=== PATIENT | male | born 1935 | race Caucasian/White ===

== ENCOUNTER → 2017-03-14 | Outpatient (REF) | payer MEDICARE ==
[~2017-03-14] MED LIST: NO HOME MEDS
[2017-03-18 00:06] LABS: Lyme Disease IgG Ab 18 kDa Ban Present (.); Lyme Disease IgG Ab 23 kDa Ban Present (.); Lyme Disease IgG Ab 28 kDa Ban Present (.); Lyme Disease IgG Ab 30 kDa Ban Present (.); Lyme Disease IgG Ab 39 kDa Ban Present (.); Lyme Disease IgG Ab 41 kDa Ban Present (.); Lyme Disease IgG Ab 45 kDa Ban Present (.); Lyme Disease IgG Ab 58 kDa Ban Present (.); Lyme Disease IgG Ab 66 kDa Ban Present (.); Lyme Disease IgG Ab 93 kDa Ban Present (.); Lyme Disease IgG West Blot Int Positive (.); Lyme Disease IgG/IgM Antibodie 3.08 ISR (0.00-0.90); Lyme Disease IgM Ab 23 kDa Ban Present (.); Lyme Disease IgM Ab 39 kDa Ban Present (.); Lyme Disease IgM Ab 41 kDa Ban Absent (.); Lyme Disease IgM Ab Quantitati 2.91 index (0.00-0.79); Lyme Disease IgM West Blot Int Positive (.)
== END ==
LOC: M LAB REF 12:10
PROVIDERS: ATTEND Nurse Practitioner Family
DX: R21 Rash and other nonspecific skin eruption (principal)

== ENCOUNTER → 2017-06-20 | Outpatient (REF) | payer MEDICARE | LOC: M LAB REF 12:42 | PROVIDERS: ATTEND Nurse Practitioner Family | DX: H53.121 Transient visual loss, right eye (principal); R01.1 Cardiac murmur, unspecified; R42 Dizziness and giddiness ==

== ENCOUNTER 2018-01-26 11:36 | Day surgery (SDC) | payer MEDICARE ==
[2018-01-26] MEDS ORDERED: PROPOFOL 200 MG/20 ML VIAL As Ordered (12:40)
== END 2018-01-26 13:46 | disposition home or self-care (01) ==
LOC: M OPP 11:36
DX: Z12.11 Encounter for screening for malignant neoplasm of colon (principal); K64.0 First degree hemorrhoids; D12.6 Benign neoplasm of colon, unspecified; K57.30 Diverticulosis of large intestine without perforation or abscess without bleeding; Z86.010 Personal history of colon polyps; M12.9 Arthropathy, unspecified; A69.22 Other neurologic disorders in Lyme disease; Z91.041 Radiographic dye allergy status; Z85.46 Personal history of malignant neoplasm of prostate; Z92.21 Personal history of antineoplastic chemotherapy
CPT/HCPCS: 45385

== ENCOUNTER → 2019-10-18 | Outpatient (REF) | payer MEDICARE ==
[~2019-10-18] MED LIST changes: +CALC500T61 PO; +FISH7.5C PO; +VITA200015 PO
[2019-10-19 14:15] LABS: PSA TOTAL 0.5 ng/mL (0.0-4.0)
== END ==
LOC: M LAB REF 12:24
PROVIDERS: ATTEND Internal Medicine
DX: C61 Malignant neoplasm of prostate (principal)

== ENCOUNTER → 2020-05-09 | Outpatient (REF) | payer MEDICARE ==
[2020-05-12 15:15] LABS: Lyme Disease IgG Ab 18 kDa Ban Present (.); Lyme Disease IgG Ab 23 kDa Ban Present (.); Lyme Disease IgG Ab 28 kDa Ban Absent (.); Lyme Disease IgG Ab 30 kDa Ban Absent (.); Lyme Disease IgG Ab 39 kDa Ban Present (.); Lyme Disease IgG Ab 41 kDa Ban Present (.); Lyme Disease IgG Ab 45 kDa Ban Absent (.); Lyme Disease IgG Ab 58 kDa Ban Present (.); Lyme Disease IgG Ab 66 kDa Ban Absent (.); Lyme Disease IgG Ab 93 kDa Ban Present (.); Lyme Disease IgG West Blot Int Positive (.); Lyme Disease IgG/IgM Antibodie 1.63 ISR (0.00-0.90); Lyme Disease IgM Ab 23 kDa Ban Present (.); Lyme Disease IgM Ab 39 kDa Ban Absent (.); Lyme Disease IgM Ab 41 kDa Ban Absent (.); Lyme Disease IgM Ab Quantitati <0.80 index (0.00-0.79); Lyme Disease IgM West Blot Int Negative (.)
== END ==
LOC: M LAB REF 16:41
PROVIDERS: ATTEND Nurse Practitioner Adult Health
DX: L30.9 Dermatitis, unspecified (principal)

== ENCOUNTER → 2020-11-09 | Outpatient (CLI) | payer MEDICARE ==
--- NOTE | 2020-11-09 10:37 | REP ---
INDICATION: SHORTNESS OF BREATH COMPARISON: 09/10/2007. TECHNIQUE: PA/Lateral FINDINGS: Lungs: Clear, no infiltrate. Heart: Normal in size. Mediastinum: There is calcification of the thoracic aorta. The mediastinal silhouette is unchanged. Pleural angles: Unremarkable.. Bones and soft tissues: There are degenerative changes of the spine without compression deformity. IMPRESSION: No acute pulmonary disease. <Electronically signed by Harinder Patrick > 11/09/20 1037
== END ==
LOC: M WUC 08:56
PROVIDERS: ATTEND Nurse Practitioner Adult Health
DX: R06.02 Shortness of breath (principal)

== ENCOUNTER → 2022-06-26 | Outpatient (REF) | payer MEDICARE ==
[~2022-06-26] MED LIST changes: +FISH10005 PO; -FISH7.5C PO
[2022-06-28 15:08] LABS: PSA TOTAL 0.8 ng/mL (0.0-4.0); TESTOSTERONE FREE (DIRECT) 1.6 pg/mL (6.6-18.1)
== END ==
LOC: M LAB REF 16:28
PROVIDERS: ATTEND Nurse Practitioner Adult Health
DX: C61 Malignant neoplasm of prostate (principal)

== ENCOUNTER → 2022-10-02 | Outpatient (REF) | payer MEDICARE | LOC: M LAB REF 12:10 | PROVIDERS: ATTEND Nurse Practitioner Adult Health | DX: C61 Malignant neoplasm of prostate (principal) ==

== ENCOUNTER → 2023-01-16 | Outpatient (REF) | payer MEDICARE ==
[2023-01-17 23:07] LABS: PSA TOTAL 1.1 ng/mL (0.0-4.0); TESTOSTERONE FREE (DIRECT) 2.1 pg/mL (6.6-18.1)
== END ==
LOC: M LAB REF 12:15
PROVIDERS: ATTEND Nurse Practitioner Adult Health
DX: C61 Malignant neoplasm of prostate (principal)

== ENCOUNTER 2023-03-08 23:45 | Inpatient (IN) | payer MEDICARE ==
[~2023-03-08] VITALS: Ht 177.8 cm; Wt 94.8 kg
[2023-03-09 00:45] LABS: BASO # 0.1 10^3/uL (0.0-0.2); BASO % 0.7 % (0.0-1.0); EOS # 0.2 10^3/uL (0.0-0.5); EOS % 3.2 % (0.0-3.0); HEMATOCRIT 39.3 % (42.0-52.0); HEMOGLOBIN 12.8 g/dl (13.5-17.5); LYMPH # 0.9 10^3/uL (1.5-5.0); LYMPH % 12.7 % (24.0-44.0); MEAN CORPUSCULAR HGB CONC 32.6 g/dl (32.0-36.5); MONO # 0.7 10^3/uL (0.0-0.8); MONO % 9.6 % (2.0-8.0); NEUTROPHILS % 73.5 % (36.0-66.0); PLATELET COUNT, AUTOMATED 272 10^3/uL (150-450); RED BLOOD COUNT 4.57 10^6/uL (4.30-6.10); WHITE BLOOD COUNT 6.8 10^3/uL (4.0-10.0)
[2023-03-09 00:50] LABS: BLOOD UREA NITROGEN 18 MG/DL (9-23); CARBON DIOXIDE LEVEL 28 MMOL/L (20-31); CHLORIDE LEVEL 104 MMOL/L (98-107); CREATININE FOR GFR 0.93 MG/DL (0.70-1.30); GLOMERULAR FILTRATION RATE > 60.0 (>35); GLUCOSE, FASTING 110 MG/DL (74-106); POTASSIUM SERUM 4.7 MMOL/L (3.5-5.1); SODIUM LEVEL 136 MMOL/L (136-145)
[2023-03-09] MEDS ORDERED: cefTRIAXone SOD 1 GM in D5W MINI-BAG PLUS 50 ML IV ONE (07:10)
[2023-03-09] MEDS ORDERED: MED REC IN PROGRESS XX SCH (08:45)
[2023-03-09 09:08] LABS: INR 1.07; PROTHROMBIN TIME 13.6 SECONDS (12.5-14.5)
[2023-03-09 09:09] LABS: PARTIAL THROMBOPLASTIN TIME 29.9 SECONDS (24.8-34.2)
[2023-03-09] MEDS ORDERED: ACETAMINOPHEN 500 MG TAB PO PRN (09:15)
[2023-03-09] MEDS ORDERED: traMADol 50 MG TAB PO PRN (09:15)
[2023-03-09] MEDS ORDERED: HOME MED LIST COMPLETE! XX SCH (09:15)
[2023-03-09] MEDS: oxyBUTYnin 5 MG TAB PO PRN (09:34)
[2023-03-09 11:17] VITALS: BP 165/74; TEMP 97.9; O2SAT 97
[2023-03-09 14:00] VITALS: BP 145/50; TEMP 97.9; O2SAT 95
[2023-03-09 20:15] VITALS: BP 146/85; TEMP 98.6; O2SAT 98
[2023-03-10 05:43] LABS: HEMATOCRIT 35.2 % (42.0-52.0); HEMOGLOBIN 11.5 g/dl (13.5-17.5); MEAN CORPUSCULAR HEMOGLOBIN 27.9 pg (27.0-33.0); MEAN CORPUSCULAR HGB CONC 32.7 g/dl (32.0-36.5); MEAN CORPUSCULAR VOLUME 85.4 fl (80.0-96.0); PLATELET COUNT, AUTOMATED 213 10^3/uL (150-450); RED BLOOD COUNT 4.12 10^6/uL (4.30-6.10); WHITE BLOOD COUNT 8.5 10^3/uL (4.0-10.0)
[2023-03-10 05:46] VITALS: BP 150/54; TEMP 98.1; O2SAT 97
[2023-03-10 06:13] LABS: BLOOD UREA NITROGEN 16 MG/DL (9-23); CALCIUM LEVEL 8.4 MG/DL (8.3-10.6); CARBON DIOXIDE LEVEL 26 MMOL/L (20-31); CHLORIDE LEVEL 101 MMOL/L (98-107); CREATININE FOR GFR 0.78 MG/DL (0.70-1.30); GLOMERULAR FILTRATION RATE > 60.0 (>35); GLUCOSE, FASTING 102 MG/DL (74-106); POTASSIUM SERUM 4.2 MMOL/L (3.5-5.1); SODIUM LEVEL 134 MMOL/L (136-145)
[2023-03-10] MEDS ORDERED: cefTRIAXone SOD 1 GM in D5W MINI-BAG PLUS 50 ML IV SCH (08:00)
[2023-03-10] MEDS ORDERED: OXYB5TAB10 PO (11:13)
[2023-03-10] MEDS: oxyBUTYnin 5 MG TAB PO PRN (13:18)
[2023-03-12 23:07] LABS: PSA TOTAL 1.4 ng/mL (0.0-4.0)
== END 2023-03-10 13:31 | disposition home or self-care (01) | DRG 700 ==
LOC: EDBD 23:45 → M ED 23:45 → M ED INP 03-09 08:24 → ENRESERV 03-09 09:36 → M MSPAV 03-09 11:06
PROVIDERS: ADMIT Family Medicine; ATTEND Family Medicine
DX: N32.0 Bladder-neck obstruction (principal); Z85.46 Personal history of malignant neoplasm of prostate; Z92.3 Personal history of irradiation; I10 Essential (primary) hypertension; R31.0 Gross hematuria; Z91.041 Radiographic dye allergy status

== ENCOUNTER → 2023-04-22 | Outpatient (REF) | payer MEDICARE, MEDICAID ==
[~2023-04-22] MED LIST changes: +OXYB5TAB11 PO
[2023-04-22 11:40] LABS: CK-MB VALUE MASS 1.7 NG/ML (<3.6)
[2023-04-22 11:41] LABS: MB/CK RELATIVE INDEX 3.26 (< OR =4)
== END ==
LOC: M LAB REF 10:36
PROVIDERS: ATTEND Nurse Practitioner Family
DX: R55 Syncope and collapse (principal); R31.9 Hematuria, unspecified

== ENCOUNTER → 2023-04-29 | Outpatient (REF) | payer MEDICARE, MEDICAID | LOC: M LAB REF 16:24 | PROVIDERS: ATTEND Nurse Practitioner Family | DX: C61 Malignant neoplasm of prostate (principal) ==

== ENCOUNTER → 2023-06-06 | Outpatient (REF) | payer MEDICARE, MEDICAID | LOC: M LAB REF 16:20 | PROVIDERS: ATTEND Nurse Practitioner Family | DX: R31.9 Hematuria, unspecified (principal) ==

== ENCOUNTER 2023-08-27 04:41 | Emergency (ER) | payer MEDICARE, MEDICAID ==
[~2023-08-27] VITALS: Ht 182.9 cm; Wt 81.2 kg
[~2023-08-27 04:41] MED LIST changes: -OXYB5TAB11 PO; +OXYB5TAB14 PO
[2023-08-27 05:22] LABS: BASO # 0.1 10^3/uL (0.0-0.2); BASO % 1.2 % (0.0-1.0); EOS # 0.4 10^3/uL (0.0-0.5); EOS % 7.1 % (0.0-3.0); HEMATOCRIT 38.3 % (42.0-52.0); HEMOGLOBIN 12.4 g/dl (13.5-17.5); LYMPH % 19.4 % (24.0-44.0); MEAN CORPUSCULAR HEMOGLOBIN 27.3 pg (27.0-33.0); MEAN CORPUSCULAR HGB CONC 32.4 g/dl (32.0-36.5); MEAN CORPUSCULAR VOLUME 84.4 fl (80.0-96.0); MONO # 0.5 10^3/uL (0.0-0.8); MONO % 9.6 % (2.0-8.0); NEUTROPHILS # 3.3 10^3/uL (1.5-8.5); NEUTROPHILS % 62.5 % (36.0-66.0); PLATELET COUNT, AUTOMATED 186 10^3/uL (150-450); RED BLOOD COUNT 4.54 10^6/uL (4.30-6.10); WHITE BLOOD COUNT 5.2 10^3/uL (4.0-10.0)
[2023-08-27 05:33] LABS: INR 1.16; PROTHROMBIN TIME 14.4 SECONDS (12.5-14.5)
[2023-08-27 05:34] LABS: PARTIAL THROMBOPLASTIN TIME 30.9 SECONDS (24.8-34.2)
[2023-08-27 05:44] LABS: ALBUMIN 3.5 G/DL (3.2-5.2); ALKALINE PHOSPHATASE 77 U/L (46-116); ALT/SGPT 19 U/L (7.0-40); AST/SGOT 28 U/L (<34); BILIRUBIN,DIRECT 0.2 MG/DL (<0.4); BILIRUBIN,TOTAL 0.5 MG/DL (0.3-1.2); BLOOD UREA NITROGEN 19 MG/DL (9-23); CALCIUM LEVEL 8.9 MG/DL (8.3-10.6); CARBON DIOXIDE LEVEL 26 MMOL/L (20-31); CHLORIDE LEVEL 107 MMOL/L (98-107); CREATININE FOR GFR 0.91 MG/DL (0.70-1.30); GLOMERULAR FILTRATION RATE > 60.0 (>35); GLUCOSE, FASTING 99 MG/DL (74-106); POTASSIUM SERUM 4.4 MMOL/L (3.5-5.1); SODIUM LEVEL 139 MMOL/L (136-145); TOTAL PROTEIN 6.5 G/DL (5.7-8.2)
[2023-08-27 06:42] VITALS: BP 128/78; TEMP 98.8; O2SAT 98
== END 2023-08-27 06:43 | disposition home or self-care (01) ==
LOC: M ED 04:41
DX: R33.9 Retention of urine, unspecified (principal); R31.9 Hematuria, unspecified; Z85.46 Personal history of malignant neoplasm of prostate; Z91.041 Radiographic dye allergy status; Z79.899 Other long term (current) drug therapy

== ENCOUNTER → 2023-08-29 | Outpatient (CLI) | payer MEDICARE, MEDICAID ==
[~2023-08-29] MED LIST changes: +ASPI-226 PO; +ATOR40TA75 PO; +CARV6.25 PO; +ELIQ5TAB PO; +FURO40TA2 PO; +LISI2.5T9 PO; +SENO8.6T10 PO; +TAMS1CAP17 PO
[2023-08-29 10:13] LABS: HEMATOCRIT 35.9 % (42.0-52.0); HEMOGLOBIN 11.4 g/dl (13.5-17.5); MEAN CORPUSCULAR HGB CONC 31.8 g/dl (32.0-36.5); MEAN CORPUSCULAR VOLUME 85.1 fl (80.0-96.0); PLATELET COUNT, AUTOMATED 181 10^3/uL (150-450); RED BLOOD COUNT 4.22 10^6/uL (4.30-6.10); WHITE BLOOD COUNT 5.9 10^3/uL (4.0-10.0)
[2023-08-29 12:23] LABS: APPEARANCE, URINE CLOUDY (CLEAR); BACTERIA, URINE AUTO NEGATIVE (NEGATIVE); BILIRUBIN, URINE AUTO NEGATIVE (NEGATIVE); BLOOD, URINE BLOOD 2+ (NEGATIVE); COLOR, URINE RED (YELLOW); GLUCOSE, URINE (UA) AUTO NEGATIVE (NEGATIVE); KETONE, URINE AUTO NEGATIVE (NEGATIVE); LEUKOCYTE ESTERASE, URINE AUTO 1+ (NEGATIVE); MUCUS, URINE SMALL (NEGATIVE); NITRITE, URINE AUTO NEGATIVE (NEGATIVE); PROTEIN, URINE AUTO 2+ mg/dL (NEGATIVE); RBC, URINE AUTO TNTC /HPF (0-3); SPECIFIC GRAVITY URINE AUTO 1.013 (1.002-1.035); SQUAMOUS EPITHELIAL CELL UR AU 0 /HPF (0-6); UROBILINOGEN, URINE AUTO 0.2 mg/dL (0.0-2.0); WBC, URINE AUTO 9 /HPF (0-3)
== END ==
LOC: M LAB 09:10
PROVIDERS: ATTEND Specialist
DX: N30.40 Irradiation cystitis without hematuria (principal); Z85.46 Personal history of malignant neoplasm of prostate

== ENCOUNTER 2023-08-30 03:32 | Emergency (ER) | payer MEDICARE, MEDICAID ==
[~2023-08-30] VITALS: Ht 167.6 cm; Wt 79.5 kg
[~2023-08-30 03:32] MED LIST changes: -ASPI-226 PO; -ATOR40TA75 PO; -CARV6.25 PO; -ELIQ5TAB PO; -FURO40TA2 PO; -LISI2.5T9 PO; -SENO8.6T10 PO; -TAMS1CAP17 PO
[2023-08-30 08:30] VITALS: BP 138/71; TEMP 98.7; O2SAT 99
[2023-08-30] MEDS ORDERED: SENO8.6T10 PO (08:31)
[2023-08-30] MEDS ORDERED: ASPI-226 PO (14:59)
[2023-08-30] MEDS ORDERED: ELIQ5TAB PO (14:59)
[2023-08-30] MEDS ORDERED: CARV6.25 PO (21:04)
[2023-08-30] MEDS ORDERED: TAMS1CAP17 PO (21:04)
[2023-08-30] MEDS ORDERED: ATOR40TA75 PO (21:04)
[2023-08-30] MEDS ORDERED: LISI2.5T9 PO (21:04)
[2023-08-30] MEDS ORDERED: FURO40TA2 PO (21:04)
== END 2023-08-30 09:00 | disposition home or self-care (01) ==
LOC: M ED 03:32 → EDBD 03:32 → M ED 09:00
DX: R31.9 Hematuria, unspecified (principal); T83.098A Other mechanical complication of other urinary catheter, initial encounter; I10 Essential (primary) hypertension; F17.210 Nicotine dependence, cigarettes, uncomplicated; Z88.8 Allergy status to other drugs, medicaments and biological substances; Z79.1 Long term (current) use of non-steroidal anti-inflammatories (NSAID); Z79.899 Other long term (current) drug therapy

== ENCOUNTER 2023-08-30 14:43 | Inpatient (IN) | payer MEDICARE, MEDICAID ==
[~2023-08-30] VITALS: Ht 180.3 cm; Wt 84.7 kg
[~2023-08-30 14:43] MED LIST changes: +SENO8.6T10 PO
[2023-08-30] MEDS ORDERED: ELIQ5TAB PO (14:59)
[2023-08-30] MEDS ORDERED: ASPI-226 PO (14:59)
[2023-08-30 20:08] LABS: BASO % 0.7 % (0.0-1.0); EOS # 0.3 10^3/uL (0.0-0.5); EOS % 4.5 % (0.0-3.0); HEMATOCRIT 35.8 % (42.0-52.0); HEMOGLOBIN 11.7 g/dl (13.5-17.5); LYMPH # 1.1 10^3/uL (1.5-5.0); LYMPH % 20.1 % (24.0-44.0); MEAN CORPUSCULAR HEMOGLOBIN 27.8 pg (27.0-33.0); MEAN CORPUSCULAR HGB CONC 32.7 g/dl (32.0-36.5); MONO # 0.5 10^3/uL (0.0-0.8); MONO % 8.6 % (2.0-8.0); NEUTROPHILS # 3.7 10^3/uL (1.5-8.5); NEUTROPHILS % 65.7 % (36.0-66.0); PLATELET COUNT, AUTOMATED 187 10^3/uL (150-450); RED BLOOD COUNT 4.21 10^6/uL (4.30-6.10); WHITE BLOOD COUNT 5.6 10^3/uL (4.0-10.0)
[2023-08-30 20:16] LABS: BLOOD UREA NITROGEN 18 MG/DL (9-23); CALCIUM LEVEL 8.8 MG/DL (8.3-10.6); CARBON DIOXIDE LEVEL 23 MMOL/L (20-31); CHLORIDE LEVEL 110 MMOL/L (98-107); CREATININE FOR GFR 0.75 MG/DL (0.70-1.30); GLOMERULAR FILTRATION RATE > 60.0 (>35); GLUCOSE, FASTING 114 MG/DL (74-106); POTASSIUM SERUM 4.8 MMOL/L (3.5-5.1); SODIUM LEVEL 141 MMOL/L (136-145)
[2023-08-30 20:20] LABS: INR 1.24; PARTIAL THROMBOPLASTIN TIME 29.8 SECONDS (24.8-34.2); PROTHROMBIN TIME 15.2 SECONDS (12.5-14.5)
[2023-08-30] MEDS ORDERED: LISI2.5T9 PO (21:04)
[2023-08-30] MEDS ORDERED: TAMS1CAP17 PO (21:04)
[2023-08-30] MEDS ORDERED: CARV6.25 PO (21:04)
[2023-08-30] MEDS ORDERED: ATOR40TA75 PO (21:04)
[2023-08-30] MEDS ORDERED: FURO40TA2 PO (21:04)
[2023-08-30] MEDS ORDERED: HOME MED LIST COMPLETE! XX SCH (21:15)
[2023-08-30] MEDS ORDERED: ACETAMINOPHEN TAB 650MG DOSE (2X325MG) PO PRN (22:05)
[2023-08-31 00:31] VITALS: BP 130/73; TEMP 97; O2SAT 99
[2023-08-31] MEDS: CARVedilol 6.25 MG TAB PO SCH (00:39)
[2023-08-31] MEDS: TAMSULOSIN 0.4 MG CAP PO SCH (00:40)
[2023-08-31] MEDS: ATORVASTATIN 20 MG TAB PO SCH (00:40)
[2023-08-31 03:56] VITALS: BP 118/62; TEMP 97.3; O2SAT 97
[2023-08-31 06:03] LABS: HEMATOCRIT 32.2 % (42.0-52.0); HEMOGLOBIN 10.3 g/dl (13.5-17.5); MEAN CORPUSCULAR HEMOGLOBIN 27.4 pg (27.0-33.0); MEAN CORPUSCULAR VOLUME 85.6 fl (80.0-96.0); PLATELET COUNT, AUTOMATED 177 10^3/uL (150-450); RED BLOOD COUNT 3.76 10^6/uL (4.30-6.10); WHITE BLOOD COUNT 5.3 10^3/uL (4.0-10.0)
[2023-08-31 06:29] LABS: BLOOD UREA NITROGEN 16 MG/DL (9-23); CALCIUM LEVEL 8.5 MG/DL (8.3-10.6); CARBON DIOXIDE LEVEL 26 MMOL/L (20-31); CHLORIDE LEVEL 105 MMOL/L (98-107); CREATININE FOR GFR 0.82 MG/DL (0.70-1.30); GLOMERULAR FILTRATION RATE > 60.0 (>35); GLUCOSE, FASTING 97 MG/DL (74-106); SODIUM LEVEL 136 MMOL/L (136-145)
[2023-08-31 07:31] VITALS: BP 131/69; TEMP 97.1; O2SAT 97
[2023-08-31] MEDS ORDERED: LISINOPRIL *2.5 MG* TAB PO SCH (09:00)
[2023-08-31 09:01] VITALS: BP 131/69
[2023-08-31 11:40] VITALS: BP 113/71; TEMP 97.1; O2SAT 98
== END 2023-08-31 15:54 | disposition home health service (06) | DRG 700 ==
LOC: M ED 14:43 → M ED INP 21:40 → ENRESERV 23:27 → M PCU 08-31 00:27
PROVIDERS: ADMIT Internal Medicine; ATTEND Internal Medicine
PROC: 0TPBX0Z Removal of Drainage Device from Bladder, External Approach (ICD-10-PCS; principal; 2023-08-31)
PROC: 0T9B70Z Drainage of Bladder with Drainage Device, Via Natural or Artificial Opening (ICD-10-PCS; 2023-08-31)
DX: N30.41 Irradiation cystitis with hematuria (principal); I48.91 Unspecified atrial fibrillation; R33.9 Retention of urine, unspecified; D50.0 Iron deficiency anemia secondary to blood loss (chronic); E78.5 Hyperlipidemia, unspecified; I10 Essential (primary) hypertension; N35.911 Unspecified urethral stricture, male, meatal; Z79.01 Long term (current) use of anticoagulants; Z79.82 Long term (current) use of aspirin; Z79.899 Other long term (current) drug therapy; Z91.041 Radiographic dye allergy status; Z95.2 Presence of prosthetic heart valve; Z92.3 Personal history of irradiation; Z85.46 Personal history of malignant neoplasm of prostate; Z87.891 Personal history of nicotine dependence

== ENCOUNTER 2023-08-31 21:00 | Observation (INO) | payer MEDICARE, MEDICAID ==
[~2023-08-31] VITALS: Ht 177.8 cm; Wt 85.8 kg
[~2023-08-31 21:00] MED LIST changes: +ASPI-226 PO; +ATOR40TA75 PO; +CARV6.25 PO; +ELIQ5TAB PO; +FURO40TA2 PO; +LISI2.5T9 PO; +TAMS1CAP17 PO
[2023-08-31 22:12] LABS: BASO % 0.4 % (0.0-1.0); EOS # 0.3 10^3/uL (0.0-0.5); EOS % 3.6 % (0.0-3.0); HEMATOCRIT 32.5 % (42.0-52.0); HEMOGLOBIN 10.8 g/dl (13.5-17.5); LYMPH # 0.9 10^3/uL (1.5-5.0); LYMPH % 11.8 % (24.0-44.0); MEAN CORPUSCULAR HEMOGLOBIN 27.9 pg (27.0-33.0); MEAN CORPUSCULAR HGB CONC 33.2 g/dl (32.0-36.5); MONO # 0.7 10^3/uL (0.0-0.8); MONO % 8.8 % (2.0-8.0); NEUTROPHILS # 5.9 10^3/uL (1.5-8.5); PLATELET COUNT, AUTOMATED 188 10^3/uL (150-450); RED BLOOD COUNT 3.87 10^6/uL (4.30-6.10); WHITE BLOOD COUNT 7.8 10^3/uL (4.0-10.0)
[2023-08-31 22:33] LABS: BLOOD UREA NITROGEN 19 MG/DL (9-23); CALCIUM LEVEL 8.3 MG/DL (8.3-10.6); CARBON DIOXIDE LEVEL 24 MMOL/L (20-31); CHLORIDE LEVEL 105 MMOL/L (98-107); CREATININE FOR GFR 0.85 MG/DL (0.70-1.30); GLOMERULAR FILTRATION RATE > 60.0 (>35); GLUCOSE, FASTING 127 MG/DL (74-106); POTASSIUM SERUM 3.9 MMOL/L (3.5-5.1); SODIUM LEVEL 137 MMOL/L (136-145)
[2023-09-01] MEDS ORDERED: HOME MED LIST COMPLETE! XX SCH (01:15)
[2023-09-01 03:16] LABS: RSV AMPLIFICATION NEGATIVE (NEGATIVE)
[2023-09-01] MEDS ORDERED: ONDANSETRON 4MG 2ML VIAL IV PRN (04:30)
[2023-09-01] MEDS: NS 1,000 ML IV SCH (05:19)
[2023-09-01 05:50] VITALS: BP 144/86; TEMP 97.5; O2SAT 96
[2023-09-01 07:11] LABS: HEMATOCRIT 32.5 % (42.0-52.0); HEMOGLOBIN 10.5 g/dl (13.5-17.5)
[2023-09-01] MEDS: CARVedilol 6.25 MG TAB PO SCH (08:59)
[2023-09-01] MEDS ORDERED: HEPARIN SOD (PORCINE) 5000UNITS/ML 1ML VIAL/SYRINGE SC SCH (09:00)
[2023-09-01] MEDS ORDERED: ceFAZolin SOD 2 GM in IV 1 EA IV ONE (12:00)
[2023-09-01 14:00] VITALS: BP 125/68; TEMP 97.5; O2SAT 100
[2023-09-01 18:20] LABS: HEMATOCRIT 31.9 % (42.0-52.0); HEMOGLOBIN 10.3 g/dl (13.5-17.5)
[2023-09-01] MEDS: TAMSULOSIN 0.4 MG CAP PO SCH (21:23)
[2023-09-01] MEDS: ATORVASTATIN 20 MG TAB PO SCH (21:23)
[2023-09-01 21:26] VITALS: BP 129/72; TEMP 97.5; O2SAT 96
[2023-09-02 05:00] VITALS: BP 132/73; TEMP 97.5; O2SAT 100
[2023-09-02 07:02] LABS: HEMATOCRIT 32.1 % (42.0-52.0); HEMOGLOBIN 10.3 g/dl (13.5-17.5); MEAN CORPUSCULAR HEMOGLOBIN 27.5 pg (27.0-33.0); MEAN CORPUSCULAR HGB CONC 32.1 g/dl (32.0-36.5); MEAN CORPUSCULAR VOLUME 85.8 fl (80.0-96.0); PLATELET COUNT, AUTOMATED 187 10^3/uL (150-450); RED BLOOD COUNT 3.74 10^6/uL (4.30-6.10); WHITE BLOOD COUNT 4.8 10^3/uL (4.0-10.0)
[2023-09-02 07:29] LABS: BLOOD UREA NITROGEN 13 MG/DL (9-23); CALCIUM LEVEL 8.4 MG/DL (8.3-10.6); CARBON DIOXIDE LEVEL 29 MMOL/L (20-31); CHLORIDE LEVEL 110 MMOL/L (98-107); CREATININE FOR GFR 0.87 MG/DL (0.70-1.30); GLOMERULAR FILTRATION RATE > 60.0 (>35); GLUCOSE, FASTING 85 MG/DL (74-106); POTASSIUM SERUM 4.4 MMOL/L (3.5-5.1); SODIUM LEVEL 141 MMOL/L (136-145)
[2023-09-02 09:38] VITALS: BP 128/78
== END 2023-09-02 14:40 | disposition home or self-care (01) ==
LOC: M ED 21:00 → M ED INP 21:01 → ENRESERV 09-01 04:59 → M MS5PR 09-01 06:20
PROVIDERS: ADMIT Internal Medicine; ATTEND Student in an Organized Health Care Education/Training Program
DX: R31.0 Gross hematuria (principal); R33.9 Retention of urine, unspecified; T83.098A Other mechanical complication of other urinary catheter, initial encounter; Y73.2 Prosthetic and other implants, materials and accessory gastroenterology and urology devices associated with adverse incidents; C61 Malignant neoplasm of prostate; N30.41 Irradiation cystitis with hematuria; I48.91 Unspecified atrial fibrillation; E78.5 Hyperlipidemia, unspecified; Z91.041 Radiographic dye allergy status; Z79.899 Other long term (current) drug therapy; Z79.82 Long term (current) use of aspirin; Z87.891 Personal history of nicotine dependence
CPT/HCPCS: 36415; 80048; 85014; 85018; 85025; 85027; 87631; 97161; 97165; 97530; 99285; G0378

== ENCOUNTER → 2023-09-05 | Outpatient (REF) | payer MEDICARE, MEDICAID ==
[2023-09-05 14:29] LABS: APPEARANCE, URINE CLEAR (CLEAR); BACTERIA, URINE AUTO NEGATIVE (NEGATIVE); BILIRUBIN, URINE AUTO NEGATIVE (NEGATIVE); BLOOD, URINE BLOOD 2+ (NEGATIVE); COLOR, URINE YELLOW (YELLOW); GLUCOSE, URINE (UA) AUTO NEGATIVE (NEGATIVE); KETONE, URINE AUTO NEGATIVE (NEGATIVE); LEUKOCYTE ESTERASE, URINE AUTO NEGATIVE (NEGATIVE); MUCUS, URINE SMALL (NEGATIVE); NITRITE, URINE AUTO NEGATIVE (NEGATIVE); PROTEIN, URINE AUTO NEGATIVE (NEGATIVE); RBC, URINE AUTO 163 /HPF (0-3); SPECIFIC GRAVITY URINE AUTO 1.014 (1.002-1.035); SQUAMOUS EPITHELIAL CELL UR AU 0 /HPF (0-6); UROBILINOGEN, URINE AUTO 0.2 mg/dL (0.0-2.0); WBC, URINE AUTO 2 /HPF (0-3)
== END ==
LOC: M SMT 13:09
PROVIDERS: ATTEND Urology
DX: R31.0 Gross hematuria (principal)

== ENCOUNTER → 2023-11-20 | Outpatient (REF) | payer MEDICARE, MEDICAID ==
[2023-11-20 14:27] LABS: APPEARANCE, URINE CLEAR (CLEAR); BACTERIA, URINE AUTO NEGATIVE (NEGATIVE); BILIRUBIN, URINE AUTO NEGATIVE (NEGATIVE); BLOOD, URINE BLOOD 3+ (NEGATIVE); COLOR, URINE YELLOW (YELLOW); GLUCOSE, URINE (UA) AUTO NEGATIVE (NEGATIVE); KETONE, URINE AUTO NEGATIVE (NEGATIVE); LEUKOCYTE ESTERASE, URINE AUTO NEGATIVE (NEGATIVE); NITRITE, URINE AUTO NEGATIVE (NEGATIVE); PROTEIN, URINE AUTO NEGATIVE (NEGATIVE); RBC, URINE AUTO TNTC /HPF (0-3); SPECIFIC GRAVITY URINE AUTO 1.011 (1.002-1.035); SQUAMOUS EPITHELIAL CELL UR AU 0 /HPF (0-6); UROBILINOGEN, URINE AUTO 0.2 mg/dL (0.0-2.0); WBC, URINE AUTO 0 /HPF (0-3)
== END ==
LOC: M SMT 12:42
PROVIDERS: ATTEND Urology
DX: Z87.440 Personal history of urinary (tract) infections (principal)

== ENCOUNTER → 2023-11-27 | Outpatient (REF) | payer MEDICARE, MEDICAID ==
[2023-11-27 12:55] LABS: APPEARANCE, URINE CLEAR (CLEAR); BACTERIA, URINE AUTO 1+ (NEGATIVE); BILIRUBIN, URINE AUTO NEGATIVE (NEGATIVE); BLOOD, URINE BLOOD 1+ (NEGATIVE); COLOR, URINE YELLOW (YELLOW); GLUCOSE, URINE (UA) AUTO NEGATIVE (NEGATIVE); KETONE, URINE AUTO NEGATIVE (NEGATIVE); LEUKOCYTE ESTERASE, URINE AUTO NEGATIVE (NEGATIVE); MUCUS, URINE SMALL (NEGATIVE); NITRITE, URINE AUTO NEGATIVE (NEGATIVE); PROTEIN, URINE AUTO NEGATIVE (NEGATIVE); RBC, URINE AUTO 25 /HPF (0-3); SPECIFIC GRAVITY URINE AUTO 1.012 (1.002-1.035); SQUAMOUS EPITHELIAL CELL UR AU 0 /HPF (0-6); UROBILINOGEN, URINE AUTO 0.2 mg/dL (0.0-2.0); WBC, URINE AUTO 3 /HPF (0-3)
== END ==
LOC: M SMT 12:05
PROVIDERS: ATTEND Urology
DX: R30.0 Dysuria (principal)

== ENCOUNTER → 2023-12-04 | Outpatient (REF) | payer MEDICARE, MEDICAID ==
[2023-12-05 17:07] LABS: PSA TOTAL 3.7 ng/mL (0.0-4.0); TESTOSTERONE FREE (DIRECT) 1.1 pg/mL (6.6-18.1)
== END ==
LOC: M LAB REF 13:16
PROVIDERS: ATTEND Nurse Practitioner Family
DX: C61 Malignant neoplasm of prostate (principal)

== ENCOUNTER → 2023-12-09 | Outpatient (REF) | payer MEDICARE, MEDICAID ==
[~2023-12-09] MED LIST changes: +CIPR-249 PO; +LIDO4CR TOP; +SODI1TAB6 PO
[2023-12-09 13:38] LABS: APPEARANCE, URINE MANUAL HAZY (CLEAR)
[2023-12-09 13:39] LABS: BILIRUBIN, URINE MANUAL NEGATIVE (NEGATIVE); BLOOD URINE MANUAL POSITIVE (NEGATIVE); COLOR, URINE MANUAL RED (YELLOW); GLUCOSE, URINE (UA) MANUAL NEGATIVE (NEGATIVE); KETONE, URINE MANUAL NEGATIVE (NEGATIVE); LEUKOCYTE ESTERASE, URINE MAN NEGATIVE (NEGATIVE); NITRITE, URINE MANUAL NEGATIVE (NEGATIVE); PROTEIN, URINE MANUAL TRACE mg/dL (NEGATIVE); SPECIFIC GRAVITY,URINE MANUAL 1.015 (1.002-1.035); UROBILINOGEN, URINE MANUAL NORMAL (NORMAL)
[2023-12-09 13:41] LABS: BACTERIA, URINE NONE SEEN; HYALINE CAST, URINE NONE SEEN /lpf (0-1); RBC, URINE TNTC /hpf (0-3); SQUAMOUS EPITHELIAL CELL URINE NONE SEEN /hpf (SMALL AMT); WBC, URINE 0-1 /hpf (0-3)
== END ==
LOC: M LABSMT 10:16
PROVIDERS: ATTEND Urology
DX: Z85.46 Personal history of malignant neoplasm of prostate (principal)

== ENCOUNTER → 2023-12-16 | Outpatient (REF) | payer MEDICARE, MEDICAID ==
[~2023-12-16] MED LIST changes: -CIPR-249 PO; -LIDO4CR TOP; -SODI1TAB6 PO
[2023-12-16 13:41] LABS: APPEARANCE, URINE HAZY (CLEAR); BACTERIA, URINE AUTO 1+ (NEGATIVE); BILIRUBIN, URINE AUTO NEGATIVE (NEGATIVE); BLOOD, URINE BLOOD 3+ (NEGATIVE); COLOR, URINE RED (YELLOW); GLUCOSE, URINE (UA) AUTO NEGATIVE (NEGATIVE); KETONE, URINE AUTO NEGATIVE (NEGATIVE); LEUKOCYTE ESTERASE, URINE AUTO NEGATIVE (NEGATIVE); NITRITE, URINE AUTO NEGATIVE (NEGATIVE); PROTEIN, URINE AUTO 1+ mg/dL (NEGATIVE); RBC, URINE AUTO TNTC /HPF (0-3); SPECIFIC GRAVITY URINE AUTO 1.013 (1.002-1.035); SQUAMOUS EPITHELIAL CELL UR AU 0 /HPF (0-6); UROBILINOGEN, URINE AUTO 0.2 mg/dL (0.0-2.0); WBC, URINE AUTO 2 /HPF (0-3)
== END ==
LOC: M LAB REF 12:32
PROVIDERS: ATTEND Nurse Practitioner Family
DX: R31.9 Hematuria, unspecified (principal); R35.0 Frequency of micturition

== ENCOUNTER 2023-12-21 20:34 | Emergency (ER) | payer MEDICARE, MEDICAID ==
[~2023-12-21] VITALS: Ht 177.8 cm; Wt 90.5 kg
[2023-12-21 21:50] LABS: BASO # 0.1 10^3/uL (0.0-0.2); BASO % 1.1 % (0.0-1.0); EOS # 0.3 10^3/uL (0.0-0.5); HEMATOCRIT 35.5 % (42.0-52.0); HEMOGLOBIN 12.1 g/dl (13.5-17.5); LYMPH # 1.1 10^3/uL (1.5-5.0); LYMPH % 21.3 % (24.0-44.0); MEAN CORPUSCULAR HEMOGLOBIN 28.8 pg (27.0-33.0); MEAN CORPUSCULAR HGB CONC 34.1 g/dl (32.0-36.5); MEAN CORPUSCULAR VOLUME 84.5 fl (80.0-96.0); MONO # 0.7 10^3/uL (0.0-0.8); MONO % 12.9 % (2.0-8.0); NEUTROPHILS # 3.2 10^3/uL (1.5-8.5); NEUTROPHILS % 59.3 % (36.0-66.0); PLATELET COUNT, AUTOMATED 171 10^3/uL (150-450); WHITE BLOOD COUNT 5.4 10^3/uL (4.0-10.0)
[2023-12-21 22:03] LABS: INR 1.3; PARTIAL THROMBOPLASTIN TIME 32.6 SECONDS (24.8-34.2); PROTHROMBIN TIME 15.8 SECONDS (12.5-14.5)
[2023-12-21 22:13] LABS: ALBUMIN 3.6 G/DL (3.2-5.2); BILIRUBIN,DIRECT 0.2 MG/DL (<0.4); BILIRUBIN,TOTAL 0.5 MG/DL (0.3-1.2); TOTAL PROTEIN 6.5 G/DL (5.7-8.2)
[2023-12-22 00:10] VITALS: BP 163/84; TEMP 97.9; O2SAT 98
[2023-12-23] MEDS ORDERED: ELIQ5TAB (08:30)
== END 2023-12-22 00:14 | disposition home or self-care (01) ==
LOC: M ED 20:34
DX: R31.0 Gross hematuria (principal); I10 Essential (primary) hypertension; C61 Malignant neoplasm of prostate; K57.92 Diverticulitis of intestine, part unspecified, without perforation or abscess without bleeding; G43.909 Migraine, unspecified, not intractable, without status migrainosus; Z79.01 Long term (current) use of anticoagulants; Z91.041 Radiographic dye allergy status; Z79.02 Long term (current) use of antithrombotics/antiplatelets; Z79.811 Long term (current) use of aromatase inhibitors; Z79.899 Other long term (current) drug therapy

== ENCOUNTER 2023-12-23 05:46 | Emergency (ER) | payer MEDICARE, MEDICAID ==
[2023-12-23 06:17] LABS: BASO # 0.1 10^3/uL (0.0-0.2); EOS # 0.2 10^3/uL (0.0-0.5); HEMOGLOBIN 11.8 g/dl (13.5-17.5); LYMPH % 19.9 % (24.0-44.0); MEAN CORPUSCULAR HEMOGLOBIN 28.4 pg (27.0-33.0); MEAN CORPUSCULAR HGB CONC 34.7 g/dl (32.0-36.5); MEAN CORPUSCULAR VOLUME 81.9 fl (80.0-96.0); MONO # 0.6 10^3/uL (0.0-0.8); MONO % 12.3 % (2.0-8.0); NEUTROPHILS # 3.2 10^3/uL (1.5-8.5); NEUTROPHILS % 62.6 % (36.0-66.0); PLATELET COUNT, AUTOMATED 169 10^3/uL (150-450); RED BLOOD COUNT 4.15 10^6/uL (4.30-6.10)
[2023-12-23 06:28] LABS: PARTIAL THROMBOPLASTIN TIME 29.6 SECONDS (24.8-34.2)
[2023-12-23 06:40] LABS: BLOOD UREA NITROGEN 12 MG/DL (9-23); CALCIUM LEVEL 8.7 MG/DL (8.3-10.6); CARBON DIOXIDE LEVEL 23 MMOL/L (20-31); CHLORIDE LEVEL 99 MMOL/L (98-107); CREATININE FOR GFR 0.84 MG/DL (0.70-1.30); GLOMERULAR FILTRATION RATE > 60.0 (>35); GLUCOSE, FASTING 102 MG/DL (74-106); POTASSIUM SERUM 4.8 MMOL/L (3.5-5.1); SODIUM LEVEL 129 MMOL/L (136-145)
[2023-12-23] MEDS: LIDOCAINE 2% 5ML JELLY UROJET TOP ONE (07:22)
[2023-12-23 08:13] LABS: INR 1.19; PROTHROMBIN TIME 14.8 SECONDS (12.5-14.5)
[2023-12-23] MEDS ORDERED: ELIQ5TAB (08:30)
[2023-12-23 12:00] VITALS: BP 154/81; TEMP 97; O2SAT 98
== END 2023-12-23 12:31 | disposition home or self-care (01) ==
LOC: M ED 05:46
DX: R31.9 Hematuria, unspecified (principal); Z91.041 Radiographic dye allergy status; Z79.899 Other long term (current) drug therapy

== ENCOUNTER 2024-01-21 18:50 | Emergency (ER) | payer MEDICARE, MEDICAID ==
[~2024-01-21] VITALS: Ht 177.8 cm; Wt 88.6 kg
[~2024-01-21 18:50] MED LIST changes: +LIDO4CR TOP; +SODI1TAB6 PO
[2024-01-21 22:43] LABS: BASO % 0.7 % (0.0-1.0); EOS # 0.3 10^3/uL (0.0-0.5); EOS % 4.4 % (0.0-3.0); HEMATOCRIT 28.8 % (42.0-52.0); HEMOGLOBIN 9.4 g/dl (13.5-17.5); LYMPH # 0.9 10^3/uL (1.5-5.0); MEAN CORPUSCULAR HEMOGLOBIN 28.8 pg (27.0-33.0); MEAN CORPUSCULAR HGB CONC 32.6 g/dl (32.0-36.5); MEAN CORPUSCULAR VOLUME 88.3 fl (80.0-96.0); MONO # 0.6 10^3/uL (0.0-0.8); MONO % 9.9 % (2.0-8.0); NEUTROPHILS % 69.8 % (36.0-66.0); PLATELET COUNT, AUTOMATED 235 10^3/uL (150-450); RED BLOOD COUNT 3.26 10^6/uL (4.30-6.10); WHITE BLOOD COUNT 5.7 10^3/uL (4.0-10.0)
[2024-01-21 22:47] LABS: BLOOD UREA NITROGEN 11 MG/DL (9-23); CALCIUM LEVEL 8.2 MG/DL (8.3-10.6); CARBON DIOXIDE LEVEL 23 MMOL/L (20-31); CHLORIDE LEVEL 102 MMOL/L (98-107); CREATININE FOR GFR 0.83 MG/DL (0.70-1.30); GLOMERULAR FILTRATION RATE > 60.0 (>35); GLUCOSE, FASTING 97 MG/DL (74-106); POTASSIUM SERUM 4.1 MMOL/L (3.5-5.1); SODIUM LEVEL 131 MMOL/L (136-145)
[2024-01-22] MEDS ORDERED: CIPR-249 PO (00:12)
[2024-01-22 00:30] VITALS: BP 145/86; TEMP 97.5; O2SAT 99
[2024-01-22] MEDS: CIPROFLOXACIN 500MG TABLET PO ONE (00:31)
== END 2024-01-22 00:41 | disposition home or self-care (01) ==
LOC: EDBD 18:50 → M ED 18:50
DX: N39.0 Urinary tract infection, site not specified (principal); T83.098A Other mechanical complication of other urinary catheter, initial encounter; G43.909 Migraine, unspecified, not intractable, without status migrainosus; Z85.46 Personal history of malignant neoplasm of prostate; Z87.891 Personal history of nicotine dependence; Z91.041 Radiographic dye allergy status; Z79.899 Other long term (current) drug therapy

== ENCOUNTER → 2024-02-05 | Outpatient (REF) | payer MEDICARE, MEDICAID ==
[~2024-02-05] MED LIST changes: +CIPR-249 PO
[2024-02-06 11:42] LABS: PSA FREE 1.8 ng/mL; PSA TOTAL 7.2 ng/mL (< OR = 4.0)
== END ==
LOC: M LAB REF 12:31
PROVIDERS: ATTEND Nurse Practitioner Family
DX: C61 Malignant neoplasm of prostate (principal)

== ENCOUNTER 2024-02-26 02:31 | Emergency (ER) | payer MEDICARE, MEDICAID ==
[~2024-02-26] VITALS: Ht 177.8 cm; Wt 84.1 kg
[2024-02-26 02:36] VITALS: BP 142/77; TEMP 97; O2SAT 99
== END 2024-02-26 04:00 | disposition left against medical advice (07) ==
LOC: M ED 02:31
DX: Z53.21 Procedure and treatment not carried out due to patient leaving prior to being seen by health care provider (principal)

== ENCOUNTER → 2024-03-15 | Outpatient (CLI) | payer MEDICARE, MEDICAID ==
[~2024-03-15] MED LIST changes: +ENZA80TA PO; +OMEGCAP4 PO
[2024-03-15 10:18] LABS: HEMATOCRIT 36.6 % (42.0-52.0); HEMOGLOBIN 11.7 g/dl (13.5-17.5); MEAN CORPUSCULAR HEMOGLOBIN 27.3 pg (27.0-33.0); MEAN CORPUSCULAR VOLUME 85.3 fl (80.0-96.0); PLATELET COUNT, AUTOMATED 258 10^3/uL (150-450); RED BLOOD COUNT 4.29 10^6/uL (4.30-6.10); WHITE BLOOD COUNT 5.7 10^3/uL (4.0-10.0)
[2024-03-15 10:39] LABS: ALBUMIN 3.2 G/DL (3.2-5.2); ALKALINE PHOSPHATASE 101 U/L (46-116); ALT/SGPT 14 U/L (7.0-40); AST/SGOT 16 U/L (<34); BILIRUBIN,TOTAL 0.3 MG/DL (0.3-1.2); BLOOD UREA NITROGEN 12 MG/DL (9-23); CALCIUM LEVEL 9.1 MG/DL (8.3-10.6); CARBON DIOXIDE LEVEL 29 MMOL/L (20-31); CHLORIDE LEVEL 102 MMOL/L (98-107); CREATININE FOR GFR 0.87 MG/DL (0.70-1.30); GLOMERULAR FILTRATION RATE > 60.0 (>35); GLUCOSE, FASTING 87 MG/DL (74-106); POTASSIUM SERUM 4.8 MMOL/L (3.5-5.1); SODIUM LEVEL 133 MMOL/L (136-145); TOTAL PROTEIN 6.8 G/DL (5.7-8.2)
== END ==
LOC: M PLAIMG 08:45
PROVIDERS: ATTEND Urology
DX: N35.912 Unspecified bulbous urethral stricture, male (principal); Z95.2 Presence of prosthetic heart valve; Z79.899 Other long term (current) drug therapy

== ENCOUNTER → 2024-03-17 | Outpatient (REF) | payer MEDICARE, MEDICAID | LOC: M LAB REF 16:35 | PROVIDERS: ATTEND Nurse Practitioner Family | DX: N39.0 Urinary tract infection, site not specified (principal) ==

== ENCOUNTER 2024-03-25 12:37 | Day surgery (SDC) | payer MEDICARE, MEDICAID ==
[~2024-03-25] VITALS: Ht 177.8 cm; Wt 83.2 kg
[2024-03-25] MEDS: LIDOCAINE 1% SDV 30ML VIAL As Ordered ONE (09:16)
[~2024-03-25 12:37] MED LIST changes: +LIDOCAINE 2% 100MG/5ML SDV (FOR ANES.) As Ordered ONE; +propofoL 200 MG/20 ML VIAL As Ordered ONE
[2024-03-25] MEDS: ceFAZolin SOD 2 GM in IV 1 EA IV ONE (13:38)
[2024-03-25] MEDS ORDERED: fentaNYL 100 MCG/2 ML INJECTION As Ordered ONE (13:40)
[2024-03-25] MEDS ORDERED: ONDANSETRON 4MG 2ML VIAL As Ordered ONE (13:41)
[2024-03-25] MEDS ORDERED: ONDANSETRON 4MG 2ML VIAL IV PRN (14:30)
[2024-03-25] MEDS ORDERED: LR 1,000 ML IV SCH (14:30)
[2024-03-25] MEDS ORDERED: fentaNYL 100 MCG/2 ML INJECTION IV PRN (14:30)
[2024-03-25] MEDS ORDERED: HYDROMORPHONE HCL 0.5 MG/ 0.5 ML SYRINGE IV PRN (14:30)
[2024-03-25] MEDS ORDERED: oxyCODONE 5MG TAB PO PRN (14:30)
[2024-03-25] MEDS ORDERED: HYDR-3713 PO (14:36)
[2024-03-25] MEDS ORDERED: BACT800T5 PO (14:36)
[2024-03-25 16:10] VITALS: BP 160/90; TEMP 98; O2SAT 98
== END 2024-03-25 16:43 | disposition home or self-care (01) ==
LOC: M SDC 12:37
PROVIDERS: ATTEND Urology
DX: N35.919 Unspecified urethral stricture, male, unspecified site (principal); R33.9 Retention of urine, unspecified; I35.9 Nonrheumatic aortic valve disorder, unspecified; Z95.2 Presence of prosthetic heart valve; Z87.891 Personal history of nicotine dependence; Z91.041 Radiographic dye allergy status; Z79.899 Other long term (current) drug therapy
CPT/HCPCS: 51040; J0690; J1100; J2405; J3010

== ENCOUNTER → 2024-04-16 | Outpatient (CLI) | payer MEDICARE, MEDICAID ==
[~2024-04-16] MED LIST changes: +BACT800T5 PO; +HYDR-3713 PO; -LIDOCAINE 2% 100MG/5ML SDV (FOR ANES.) As Ordered ONE; -propofoL 200 MG/20 ML VIAL As Ordered ONE
[2024-04-16 13:32] LABS: BASO # 0.1 10^3/uL (0.0-0.2); BASO % 0.9 % (0.0-1.0); EOS # 0.3 10^3/uL (0.0-0.5); EOS % 5.9 % (0.0-3.0); HEMATOCRIT 32.2 % (42.0-52.0); HEMOGLOBIN 10.4 g/dl (13.5-17.5); LYMPH # 0.9 10^3/uL (1.5-5.0); LYMPH % 17.4 % (24.0-44.0); MEAN CORPUSCULAR HEMOGLOBIN 26.4 pg (27.0-33.0); MEAN CORPUSCULAR HGB CONC 32.3 g/dl (32.0-36.5); MEAN CORPUSCULAR VOLUME 81.7 fl (80.0-96.0); MONO # 0.6 10^3/uL (0.0-0.8); MONO % 11.4 % (2.0-8.0); NEUTROPHILS # 3.4 10^3/uL (1.5-8.5); NEUTROPHILS % 64.2 % (36.0-66.0); PLATELET COUNT, AUTOMATED 265 10^3/uL (150-450); RED BLOOD COUNT 3.94 10^6/uL (4.30-6.10); WHITE BLOOD COUNT 5.3 10^3/uL (4.0-10.0)
[2024-04-16 13:37] LABS: PSA SCREENING 6.93 NG/ML (< 4.00)
[2024-04-16 13:38] LABS: ALKALINE PHOSPHATASE 104 U/L (46-116); ALT/SGPT 17 U/L (7.0-40); AST/SGOT 20 U/L (<34); BILIRUBIN,TOTAL 0.3 MG/DL (0.3-1.2); BLOOD UREA NITROGEN 15 MG/DL (9-23); CARBON DIOXIDE LEVEL 30 MMOL/L (20-31); CHLORIDE LEVEL 102 MMOL/L (98-107); CREATININE FOR GFR 0.87 MG/DL (0.70-1.30); GLOMERULAR FILTRATION RATE > 60.0 (>35); GLUCOSE, FASTING 89 MG/DL (74-106); POTASSIUM SERUM 4.9 MMOL/L (3.5-5.1); SODIUM LEVEL 135 MMOL/L (136-145); TOTAL PROTEIN 6.5 G/DL (5.7-8.2)
[2024-04-16 13:41] LABS: FERRITIN 37.9 NG/ML (10.5-307.3)
== END ==
LOC: M PLALAB 09:19
DX: C61 Malignant neoplasm of prostate (principal); Z12.5 Encounter for screening for malignant neoplasm of prostate
CPT/HCPCS: 36415; 80053; 82728; 85025; G0103

== ENCOUNTER → 2024-06-07 | Outpatient (CLI) | payer MEDICARE, MEDICAID ==
[2024-06-07 13:13] LABS: PERCENT SATURATION 8.9 % (19.7-50.0)
== END ==
LOC: M PLALAB 09:30
PROVIDERS: ATTEND Nurse Practitioner
DX: R31.9 Hematuria, unspecified (principal)

== ENCOUNTER → 2024-07-01 | Outpatient (REF) | payer MEDICARE, MEDICAID ==
[2024-07-01 17:38] LABS: APPEARANCE, URINE HAZY (CLEAR); BACTERIA, URINE AUTO 2+ (NEGATIVE); BILIRUBIN, URINE AUTO NEGATIVE (NEGATIVE); BLOOD, URINE BLOOD 2+ (NEGATIVE); COLOR, URINE YELLOW (YELLOW); GLUCOSE, URINE (UA) AUTO NEGATIVE (NEGATIVE); KETONE, URINE AUTO NEGATIVE (NEGATIVE); LEUKOCYTE ESTERASE, URINE AUTO 1+ (NEGATIVE); MUCUS, URINE SMALL (NEGATIVE); NITRITE, URINE AUTO NEGATIVE (NEGATIVE); PROTEIN, URINE AUTO 2+ mg/dL (NEGATIVE); RBC, URINE AUTO 69 /HPF (0-3); SQUAMOUS EPITHELIAL CELL UR AU 0 /HPF (0-6); UROBILINOGEN, URINE AUTO 0.2 mg/dL (0.0-2.0); WBC, URINE AUTO 120 /HPF (0-3)
== END ==
LOC: M SMT 16:35
PROVIDERS: ATTEND Urology
DX: N50.89 Other specified disorders of the male genital organs (principal)

== ENCOUNTER → 2024-07-06 | Outpatient (CLI) | payer MEDICARE, MEDICAID ==
[2024-07-06 10:14] LABS: BLOOD UREA NITROGEN 18 MG/DL (9-23); CALCIUM LEVEL 9.3 MG/DL (8.3-10.6); CARBON DIOXIDE LEVEL 26 MMOL/L (20-31); CHLORIDE LEVEL 99 MMOL/L (98-107); CREATININE FOR GFR 0.83 MG/DL (0.70-1.30); GLOMERULAR FILTRATION RATE > 60.0 (>35); GLUCOSE, FASTING 130 MG/DL (74-106); POTASSIUM SERUM 4.7 MMOL/L (3.5-5.1); SODIUM LEVEL 134 MMOL/L (136-145)
== END ==
LOC: M PLALAB 08:05
PROVIDERS: ATTEND Physician Assistant
DX: N50.89 Other specified disorders of the male genital organs (principal)

== ENCOUNTER → 2024-07-08 | Outpatient (CLI) | payer MEDICARE, MEDICAID ==
[~2024-07-08] MED LIST changes: +ISOVUE-370 76% 100ML VIAL As Ordered ONE
== END ==
LOC: M RAD 13:32
PROVIDERS: ATTEND Urology
DX: N49.2 Inflammatory disorders of scrotum (principal)
CPT/HCPCS: 72193; Q9967

== ENCOUNTER 2024-07-12 09:28 | Emergency (ER) | payer MEDICARE, MEDICAID ==
[~2024-07-12 09:28] MED LIST changes: -ISOVUE-370 76% 100ML VIAL As Ordered ONE
[2024-07-12 09:39] VITALS: BP 128/74; TEMP 97.2; O2SAT 99
[2024-07-12 11:52] LABS: BASO # 0.1 10^3/uL (0.0-0.2); BASO % 0.7 % (0.0-1.0); EOS # 0.6 10^3/uL (0.0-0.5); EOS % 8.9 % (0.0-3.0); HEMATOCRIT 33.8 % (42.0-52.0); HEMOGLOBIN 10.8 g/dl (13.5-17.5); LYMPH # 0.7 10^3/uL (1.5-5.0); LYMPH % 10.2 % (24.0-44.0); MEAN CORPUSCULAR HEMOGLOBIN 24.1 pg (27.0-33.0); MEAN CORPUSCULAR VOLUME 75.3 fl (80.0-96.0); MONO # 0.7 10^3/uL (0.0-0.8); MONO % 10.7 % (2.0-8.0); NEUTROPHILS # 4.7 10^3/uL (1.5-8.5); NEUTROPHILS % 68.9 % (36.0-66.0); PLATELET COUNT, AUTOMATED 344 10^3/uL (150-450); RED BLOOD COUNT 4.49 10^6/uL (4.30-6.10); WHITE BLOOD COUNT 6.8 10^3/uL (4.0-10.0)
[2024-07-12 12:04] LABS: ERYTHROCYTE SEDIMENTATION RATE 89 mm/hr (0-20)
[2024-07-12 12:20] LABS: C REACTIVE PROTEIN QUANTITATIV 3.95 MG/DL (<1.0)
[2024-07-12 12:21] LABS: ALBUMIN 2.6 G/DL (3.2-5.2); ALKALINE PHOSPHATASE 131 U/L (40-129); ALT/SGPT 9 U/L (7.0-40); AST/SGOT 19 U/L (<34); BILIRUBIN,DIRECT 0.1 MG/DL (<0.4); BILIRUBIN,TOTAL 0.4 MG/DL (0.3-1.2); BLOOD UREA NITROGEN 19 MG/DL (9-23); CALCIUM LEVEL 9.2 MG/DL (8.3-10.6); CARBON DIOXIDE LEVEL 29 MMOL/L (20-31); CHLORIDE LEVEL 102 MMOL/L (98-107); CREATININE FOR GFR 0.74 MG/DL (0.70-1.30); GLOMERULAR FILTRATION RATE > 60.0 (>35); GLUCOSE, FASTING 91 MG/DL (74-106); POTASSIUM SERUM 5.1 MMOL/L (3.5-5.1); SODIUM LEVEL 137 MMOL/L (136-145); TOTAL PROTEIN 6.5 G/DL (5.7-8.2)
[2024-07-12 12:28] LABS: PROCALCITONIN <0.04 ng/ml
[2024-07-12 15:31] LABS: KETONE, URINE AUTO RFX NEGATIVE (NEGATIVE); MUCUS, URINE RFX MODERATE (NEGATIVE); NITRITE, URINE AUTO RFX NEGATIVE (NEGATIVE); RBC, URINE AUTO RFX TNTC /HPF (0-3); SQUAM EPITHELIAL CELL UR AURFX 0 /HPF (0-6)
[2024-07-12 15:44] LABS: LEUKOCYTE ESTERASE UR AUTO RFX TRACE (NEGATIVE); WBC, URINE AUTO RFX 11 /HPF (0-3)
[2024-07-14] MEDS ORDERED: ELIQ5TAB (10:14)
[2024-07-14] MEDS ORDERED: ACET-907 PO (10:14)
== END 2024-07-12 15:29 | disposition home or self-care (01) ==
LOC: M ED 09:28
DX: N45.4 Abscess of epididymis or testis (principal); Z85.46 Personal history of malignant neoplasm of prostate; Z91.041 Radiographic dye allergy status; Z79.1 Long term (current) use of non-steroidal anti-inflammatories (NSAID); Z79.899 Other long term (current) drug therapy

== ENCOUNTER → 2024-07-13 | Outpatient (CLI) | payer MEDICARE, MEDICAID ==
[~2024-07-13] MED LIST changes: +ACET-907 PO; +ELIQ5TAB
== END ==
LOC: M PLALAB 10:25
PROVIDERS: ATTEND Urology
DX: Z85.46 Personal history of malignant neoplasm of prostate (principal)

== ENCOUNTER → 2024-08-25 | Outpatient (REF) | payer MEDICARE, MEDICAID ==
[~2024-08-25] MED LIST changes: +PHOS1TAB3 PO
[2024-08-25 11:40] LABS: BLOOD UREA NITROGEN 20 MG/DL (9-23); CALCIUM LEVEL 8.6 MG/DL (8.3-10.6); CARBON DIOXIDE LEVEL 28 MMOL/L (20-31); CHLORIDE LEVEL 103 MMOL/L (98-107); CREATININE FOR GFR 0.72 MG/DL (0.70-1.30); GLOMERULAR FILTRATION RATE > 60.0 (>35); GLUCOSE, FASTING 97 MG/DL (74-106); POTASSIUM SERUM 4.7 MMOL/L (3.5-5.1); SODIUM LEVEL 137 MMOL/L (136-145)
== END ==
LOC: M LAB REF 11:13
PROVIDERS: ATTEND Urology
DX: C61 Malignant neoplasm of prostate (principal)

== ENCOUNTER → 2024-09-01 | Outpatient (CLI) | payer MEDICARE, MEDICAID ==
[~2024-09-01] MED LIST changes: +ISOVUE-370 76% 100ML VIAL As Ordered ONE
== END ==
LOC: M RAD 13:03
PROVIDERS: ATTEND Urology
DX: C61 Malignant neoplasm of prostate (principal)
CPT/HCPCS: 74177; Q9967

== ENCOUNTER → 2024-10-06 | Outpatient (CLI) | payer MEDICARE, MEDICAID ==
[~2024-10-06] MED LIST changes: -ISOVUE-370 76% 100ML VIAL As Ordered ONE
== END ==
LOC: M PLALAB 12:01
PROVIDERS: ATTEND Urology
DX: R97.20 Elevated prostate specific antigen [PSA] (principal)

== ENCOUNTER → 2024-10-13 | Outpatient (REF) | payer MEDICARE, MEDICAID ==
[2024-10-13 13:12] LABS: APPEARANCE, URINE TURBID (CLEAR); BACTERIA, URINE AUTO NEGATIVE (NEGATIVE); BILIRUBIN, URINE AUTO NEGATIVE (NEGATIVE); BLOOD, URINE BLOOD 3+ (NEGATIVE); COLOR, URINE AMBER (YELLOW); GLUCOSE, URINE (UA) AUTO NEGATIVE (NEGATIVE); KETONE, URINE AUTO TRACE mg/dL (NEGATIVE); LEUKOCYTE ESTERASE, URINE AUTO 2+ (NEGATIVE); MUCUS, URINE LARGE (NEGATIVE); NITRITE, URINE AUTO POSITIVE (NEGATIVE); PROTEIN, URINE AUTO 2+ mg/dL (NEGATIVE); RBC, URINE AUTO TNTC /HPF (0-3); SPECIFIC GRAVITY URINE AUTO 1.025 (1.002-1.035); SQUAMOUS EPITHELIAL CELL UR AU 1 /HPF (0-6); UROBILINOGEN, URINE AUTO 0.2 mg/dL (0.0-2.0); WBC, URINE AUTO 168 /HPF (0-3)
== END ==
LOC: M SMT 12:46
PROVIDERS: ATTEND Urology
DX: R33.9 Retention of urine, unspecified (principal)

== ENCOUNTER → 2024-10-19 | Outpatient (CLI) | payer MEDICARE, MEDICAID ==
[2024-10-19 11:24] LABS: CALCIUM LEVEL 9.5 MG/DL (8.3-10.6); CREATININE FOR GFR 0.78 MG/DL (0.70-1.30); GLOMERULAR FILTRATION RATE 86.9 (>35); POTASSIUM SERUM 4.5 MMOL/L (3.5-5.1)
== END ==
LOC: M PLALAB 08:38
PROVIDERS: ATTEND Urology
DX: J98.4 Other disorders of lung (principal)

== ENCOUNTER → 2024-11-04 | Outpatient (CLI) | payer MEDICARE, MEDICAID ==
[~2024-11-04] MED LIST changes: +ISOVUE-370 76% 100ML VIAL As Ordered ONE
== END ==
LOC: M RAD 16:10
PROVIDERS: ATTEND Urology
DX: C61 Malignant neoplasm of prostate (principal)
CPT/HCPCS: 71260; 74177; Q9967

== ENCOUNTER → 2024-11-08 | Outpatient (CLI) | payer MEDICARE, MEDICAID ==
[~2024-11-08] MED LIST changes: -ISOVUE-370 76% 100ML VIAL As Ordered ONE
== END ==
LOC: M PLALAB 10:22
PROVIDERS: ATTEND Urology
DX: C61 Malignant neoplasm of prostate (principal)

== ENCOUNTER → 2024-11-12 | Outpatient (REF) | payer MEDICARE, MEDICAID | LOC: M SMT 13:11 | PROVIDERS: ATTEND Urology | DX: C61 Malignant neoplasm of prostate (principal) ==

== ENCOUNTER → 2025-01-14 | Outpatient (CLI) | payer MEDICARE, MEDICAID ==
[~2025-01-14] MED LIST changes: +ACET-861 PO; +AMOX500C PO; +LOPR1TAB6 PO; +METH-1164 PO; +METO1TAB32 PO; +MIDO5TA PO; +PERCOCET PO; +RISATAB3 PO; +SENN-186 PO; +[UNRECOGNIZED DRUG - CODE] PO
== END ==
LOC: M SOG 07:22
PROVIDERS: ATTEND Orthopaedic Surgery
DX: M25.552 Pain in left hip (principal)

== ENCOUNTER → 2025-01-24 | Outpatient (CLI) | payer MEDICARE, MEDICAID ==
[~2025-01-24] MED LIST changes: +ACETAMINOPHEN 325 MG TAB PO PRN; +LIDOCAINE 1% MDV 20 ML VIAL SC SCH
[2025-01-24 08:30] VITALS: TEMP 97.8
[2025-01-24] MEDS: NS (Normal Saline) 0.9% 1,000 ML IV SCH (10:08)
[2025-01-24] MEDS: MIDAZOLAM INJ 2 MG/2 ML VIAL IV PRN (10:08)
[2025-01-24 12:00] VITALS: BP 121/61; O2SAT 99
== END ==
LOC: M IRPRO 08:14
PROVIDERS: ATTEND Internal Medicine Medical Oncology
DX: R91.8 Other nonspecific abnormal finding of lung field (principal); C61 Malignant neoplasm of prostate; C78.02 Secondary malignant neoplasm of left lung
CPT/HCPCS: 32408; 88305; 99152; 99153; J2250; J3010

== ENCOUNTER → 2025-03-16 | Outpatient (CLI) | payer MEDICARE, MEDICAID ==
[~2025-03-16] MED LIST changes: -ACETAMINOPHEN 325 MG TAB PO PRN; -LIDOCAINE 1% MDV 20 ML VIAL SC SCH
== END ==
LOC: M SOG 07:01
PROVIDERS: ATTEND Orthopaedic Surgery
DX: M25.552 Pain in left hip (principal); Z53.9 Procedure and treatment not carried out, unspecified reason